=== PATIENT | male | born 1965 | race African-American/Black ===

== ENCOUNTER 2020-11-30 09:04 | Emergency (ER) | payer OTHER ==
[~2020-11-30] VITALS: Ht 175.3 cm; Wt 64.0 kg
[2020-11-30 09:49] LABS: BASOPHILS % 0.9 % (0.0-2.0); EOSINOPHILS % 5.4 % (0.0-5.0); HEMATOCRIT. 41.4 % (42.0-52.0); HEMOGLOBIN. 14.6 g/dL (14.0-18.0); LYMPHOCYTES % 36.2 % (20.0-50.0); MEAN CORPUSCULAR HEMOGLOBIN 31.5 pg (28.0-32.0); MEAN CORPUSCULAR VOLUME 89.5 fL (80.0-94.0); MEAN PLATELET VOLUME 7.3 fl (7.4-10.4); MONOCYTES % 9.5 % (2.0-8.0); PLATELET 224 x1000/uL (130-400); RED BLOOD CELL COUNT 4.63 mill/uL (4.7-6.1); RED CELL DISTRIBUTION WIDTH 14.2 % (11.6-14.6)
[2020-11-30 09:55] LABS: CHLORIDE 108 mEq/L (98-107)
[2020-11-30 09:59] LABS: ETHANOL BLOOD < 10 mg/dL; PROTHROMBIN TIME 11.1 sec (9.6-11.0)
[2020-11-30] MEDS ORDERED: ASPIRIN 325MG EC TABLET PO ONE (10:00)
[2020-11-30 10:01] LABS: LDL CHOLESTEROL 99 mg/dL (5-100)
[2020-11-30] MEDS ORDERED: IOHEXOL-350 100 ML BOTTLE ONE (11:47)
[2020-11-30 15:40] VITALS: BP 114/77
== END 2020-11-30 16:22 | disposition short-term general hospital (02) ==
LOC: ER 09:04 → CANBEDREQ 10:49 → ER 16:22
DX: I63.9 Cerebral infarction, unspecified (principal); I69.354 Hemiplegia and hemiparesis following cerebral infarction affecting left non-dominant side; D57.1 Sickle-cell disease without crisis; Z98.2 Presence of cerebrospinal fluid drainage device
CPT/HCPCS: 36415; 70450; 70496; 70498; 71045; 80053; 80320; 82962; 83721; 84484; 85025; 85610; 93005; 99285; Q9967; Z7610; G0480

== ENCOUNTER 2024-03-29 10:11 | Emergency (ER) | payer OTHER ==
[~2024-03-29] VITALS: Ht 165.1 cm; Wt 60.0 kg
[2024-03-29 10:12] VITALS: TEMP 98.1; O2SAT 100
[2024-03-29 11:38] LABS: BASOPHILS % 1.5 % (0.0-2.0); HEMATOCRIT. 44.7 % (42.0-52.0); LYMPHOCYTES % 39.6 % (20.0-50.0); MEAN CORPUSCULAR HEMOGLOBIN 30.4 pg (28.0-32.0); MEAN CORPUSCULAR HGB CONC 33.6 g/dL (31.0-37.0); MEAN CORPUSCULAR VOLUME 90.6 fL (80.0-94.0); MEAN PLATELET VOLUME 7.8 fl (7.4-10.4); MONOCYTES % 11.2 % (2.0-8.0); NEUTROPHILS % 42.7 % (40.0-76.0); PLATELET 243 x1000/uL (130-400); RED BLOOD CELL COUNT 4.94 mill/uL (4.7-6.1); RED CELL DISTRIBUTION WIDTH 14.2 % (11.6-14.6); WHITE BLOOD COUNT 3.9 x1000/uL (4.5-11.0)
[2024-03-29 11:55] LABS: CARBON DIOXIDE 26 mEq/L (21-32); CHLORIDE 111 mEq/L (98-107); POTASSIUM 4.5 mEq/L (3.5-5.1); SODIUM 141 mEq/L (136-145)
[2024-03-29 12:00] LABS: CREATININE 1.2 mg/dL (0.6-1.3)
[2024-03-29 12:01] LABS: GLUCOSE 112 mg/dL (70-105); UREA NITROGEN BLOOD 16 mg/dL (9-23)
[2024-03-29 12:02] LABS: ALANINE AMINOTRANSFERASE 19 IU/L (10-49); ALBUMIN 4.6 g/dL (3.2-4.8); ASPARTATE AMINOTRANSFERASE 20 IU/L (<34)
[2024-03-29] MEDS: SODIUM CHLORIDE 0.9% 1,000 ML IV ONE (12:03)
[2024-03-29 12:04] LABS: BILIRUBIN TOTAL 0.3 mg/dL (0.1-1.0); PROTEIN TOTAL 7.5 g/dL (6.0-8.3)
[2024-03-29 12:16] LABS: BILIRUBIN DIRECT < 0.1 mg/dL (<=3.0); ETHANOL BLOOD < 10 mg/dL (<10); TROPONIN I HIGH SENSITIVITY < 4 ng/L (3.0-53)
[2024-03-29 14:02] LABS: CLARITY URINE CLEAR (CLEAR); COLOR URINE YELLOW (YELLOW); GLUCOSE URINE NEGATIVE (NEGATIVE); KETONES URINE NEGATIVE (NEGATIVE); LEUKOCYTE ESTERASE URINE NEGATIVE (NEGATIVE); NITRITE URINE NEGATIVE (NEGATIVE); OCCULT BLOOD URINE NEGATIVE (NEGATIVE); PROTEIN URINE NEGATIVE (NEGATIVE); SPECIFIC GRAVITY URINE 1.012 (1.005-1.030); UROBILINOGEN URINE 0.2 E.U./dL (0.2-1.0)
[2024-03-29 14:19] LABS: *AMPHETAMINES SCREEN URINE NEGATIVE (NEGATIVE); *BARBITURATES SCREEN URINE NEGATIVE (NEGATIVE); *BENZODIAZEPINES SCREEN URINE NEGATIVE (NEGATIVE)
[2024-03-29 14:20] LABS: *COCAINE SCREEN URINE NEGATIVE (NEGATIVE); CANNABINOID URINE SCREEN NEGATIVE (NEGATIVE); ECSTASY MDMA SCREEN URINE NEGATIVE (NEGATIVE); METHADONE URINE SCREEN NEGATIVE (NEGATIVE); OPIATES URINE SCREEN NEGATIVE (NEGATIVE); PHENCYCLIDINE URINE SCREEN NEGATIVE (NEGATIVE)
[2024-03-29 16:22] VITALS: BP 124/74; PULSE 54; RESP 16; O2SAT 99
== END 2024-03-29 17:32 | disposition short-term general hospital (02) ==
LOC: ER 10:11 → EDBEDREQ 13:16 → CANBEDREQ 13:17 → ER 17:32
DX: R52 Pain, unspecified (principal); D72.819 Decreased white blood cell count, unspecified; I10 Essential (primary) hypertension; Z86.73 Personal history of transient ischemic attack (TIA), and cerebral infarction without residual deficits; Z98.2 Presence of cerebrospinal fluid drainage device
CPT/HCPCS: 80076; 80305; 80048; 81003; 80320; 83690; 85025; 84484; 36415; 71045; 70450; 93005; 99285; J7030; Z7610 ×2; G0480

== ENCOUNTER 2024-06-17 15:34 | Emergency (ER) | payer OTHER ==
[~2024-06-17] VITALS: Ht 177.8 cm; Wt 72.0 kg
[2024-06-17] MEDS ORDERED: MORPHINE SULFATE 4 MG/ML INJ (FOR IV/IM USE) IV STA (15:39)
[2024-06-17 15:49] VITALS: O2SAT 98
[2024-06-17 16:31] LABS: BASOPHILS % 1.1 % (0.0-2.0); EOSINOPHILS % 3.1 % (0.0-5.0); HEMATOCRIT. 45.3 % (42.0-52.0); HEMOGLOBIN. 15.1 g/dL (14.0-18.0); LYMPHOCYTES % 25.5 % (20.0-50.0); MEAN CORPUSCULAR HEMOGLOBIN 30.4 pg (28.0-32.0); MEAN CORPUSCULAR HGB CONC 33.5 g/dL (31.0-37.0); MEAN CORPUSCULAR VOLUME 90.7 fL (80.0-94.0); MONOCYTES % 6.2 % (2.0-8.0); NEUTROPHILS % 64.1 % (40.0-76.0); PLATELET 240 x1000/uL (130-400); RED BLOOD CELL COUNT 4.99 mill/uL (4.7-6.1); RED CELL DISTRIBUTION WIDTH 14.8 % (11.6-14.6); WHITE BLOOD COUNT 5.6 x1000/uL (4.5-11.0)
[2024-06-17 16:35] LABS: CHLORIDE 110 mEq/L (98-107); POTASSIUM 4.3 mEq/L (3.5-5.1); SODIUM 142 mEq/L (136-145)
[2024-06-17 16:36] LABS: CARBON DIOXIDE 27 mEq/L (21-32)
[2024-06-17 16:37] LABS: CALCIUM 10.3 mg/dL (8.7-10.4)
[2024-06-17 16:41] LABS: CREATININE 1.1 mg/dL (0.6-1.3); PROTHROMBIN TIME 10.8 sec (9.6-11.0)
[2024-06-17 16:42] LABS: GLUCOSE 158 mg/dL (70-105); UREA NITROGEN BLOOD 34 mg/dL (9-23)
[2024-06-17 16:43] LABS: ALANINE AMINOTRANSFERASE 14 IU/L (10-49); ALBUMIN 4.9 g/dL (3.2-4.8); ASPARTATE AMINOTRANSFERASE 14 IU/L (<34)
[2024-06-17 16:44] LABS: BILIRUBIN TOTAL 0.3 mg/dL (0.1-1.0); PROTEIN TOTAL 7.5 g/dL (6.0-8.3)
[2024-06-17 16:52] LABS: BILIRUBIN DIRECT < 0.1 mg/dL (<=3.0)
[2024-06-17] MEDS: SODIUM CHLORIDE 0.9% 1,000 ML IV ONE (18:26)
[2024-06-17] MEDS: MORPHINE SULFATE 4 MG/ML INJ (FOR IV/IM USE) IV STA (18:26)
[2024-06-17] MEDS: NA PHOS,M-B/NA PHOS,DI-BA ENEMA 118ML PR ONE (19:45)
[2024-06-17 23:16] VITALS: BP 133/81; PULSE 81; RESP 16; TEMP 36.78072; O2SAT 97
[2024-06-17] MEDS ORDERED: IOHEXOL-300 100 ML BOTTLE ONE (23:21)
== END 2024-06-17 23:17 | disposition short-term general hospital (02) ==
LOC: ER 15:34
DX: K59.00 Constipation, unspecified (principal); I10 Essential (primary) hypertension; D57.1 Sickle-cell disease without crisis; Z86.73 Personal history of transient ischemic attack (TIA), and cerebral infarction without residual deficits; Z98.890 Other specified postprocedural states; Z98.2 Presence of cerebrospinal fluid drainage device
CPT/HCPCS: 99285; 74177; 96374; 71045; 96361; 80076; 80048; 83605; 83690; 85025; 85610; 36415; 93005; Q9967; J2270; J7030

== ENCOUNTER 2024-07-25 08:02 | Emergency (ER) | payer OTHER ==
[~2024-07-25] VITALS: Ht 172.7 cm; Wt 65.0 kg
[2024-07-25 08:04] VITALS: O2SAT 100
[2024-07-25 09:55] LABS: CHLORIDE 113 mEq/L (98-107); POTASSIUM 4.2 mEq/L (3.5-5.1); SODIUM 143 mEq/L (136-145)
[2024-07-25 09:56] LABS: CALCIUM 10.2 mg/dL (8.7-10.4); CARBON DIOXIDE 20 mEq/L (21-32)
[2024-07-25 10:01] LABS: CREATININE 1.2 mg/dL (0.6-1.3); GLUCOSE 148 mg/dL (70-105); UREA NITROGEN BLOOD 25 mg/dL (9-23)
[2024-07-25 10:03] LABS: ALANINE AMINOTRANSFERASE 17 IU/L (10-49); ALBUMIN 5.1 g/dL (3.2-4.8); ASPARTATE AMINOTRANSFERASE 19 IU/L (<34); BILIRUBIN TOTAL 0.3 mg/dL (0.1-1.0); PROTEIN TOTAL 8.4 g/dL (6.0-8.3)
[2024-07-25 10:04] LABS: BASOPHILS % 0.9 % (0.0-2.0); EOSINOPHILS % 6.2 % (0.0-5.0); HEMATOCRIT. 48.1 % (42.0-52.0); HEMOGLOBIN. 15.8 g/dL (14.0-18.0); MEAN CORPUSCULAR HEMOGLOBIN 30.2 pg (28.0-32.0); MEAN CORPUSCULAR HGB CONC 32.8 g/dL (31.0-37.0); MEAN CORPUSCULAR VOLUME 91.9 fL (80.0-94.0); MEAN PLATELET VOLUME 8.4 fl (7.4-10.4); MONOCYTES % 8.9 % (2.0-8.0); PLATELET 221 x1000/uL (130-400); RED BLOOD CELL COUNT 5.23 mill/uL (4.7-6.1); RED CELL DISTRIBUTION WIDTH 14.6 % (11.6-14.6); WHITE BLOOD COUNT 6.3 x1000/uL (4.5-11.0)
[2024-07-25 12:22] LABS: CLARITY URINE CLEAR (CLEAR); COLOR URINE YELLOW (YELLOW); GLUCOSE URINE NEGATIVE (NEGATIVE); KETONES URINE NEGATIVE (NEGATIVE); LEUKOCYTE ESTERASE URINE NEGATIVE (NEGATIVE); NITRITE URINE NEGATIVE (NEGATIVE); OCCULT BLOOD URINE NEGATIVE (NEGATIVE); PH URINE 5.5 (4.5-8.0); PROTEIN URINE NEGATIVE (NEGATIVE); SPECIFIC GRAVITY URINE 1.013 (1.005-1.030); UROBILINOGEN URINE 0.2 E.U./dL (0.2-1.0)
[2024-07-25] MEDS: MECLIZINE 25MG TABLET PO ONE (13:46)
[2024-07-25 16:04] VITALS: BP 124/90; PULSE 64; RESP 18; TEMP 36.7; O2SAT 100
== END 2024-07-25 16:29 | disposition short-term general hospital (02) ==
LOC: ER 08:08 → CANBEDREQ 14:25 → ER 16:29
DX: R42 Dizziness and giddiness (principal); I10 Essential (primary) hypertension; G45.9 Transient cerebral ischemic attack, unspecified; Z98.2 Presence of cerebrospinal fluid drainage device; Z86.73 Personal history of transient ischemic attack (TIA), and cerebral infarction without residual deficits; Z98.890 Other specified postprocedural states
CPT/HCPCS: 99285; 70450; 71045; 80053; 81003; 83690; 85025; 36415; 70360; 74018; J8597

== ENCOUNTER 2024-12-27 11:29 | Emergency (ER) | payer OTHER ==
[~2024-12-27] VITALS: Ht 165.1 cm; Wt 65.0 kg
[~2024-12-27 11:29] MED LIST: ATOR20TA65; LEVE500T19; MIRT7.5T11
[2024-12-27 11:31] VITALS: O2SAT 99
[2024-12-27 15:34] VITALS: BP 138/91; PULSE 66; RESP 18; TEMP 36.7; O2SAT 100
== END 2024-12-27 15:53 | disposition home or self-care (01) ==
LOC: ER 11:29
DX: S09.8XXA Other specified injuries of head, initial encounter (principal); L97.929 Non-pressure chronic ulcer of unspecified part of left lower leg with unspecified severity; E11.9 Type 2 diabetes mellitus without complications; E78.00 Pure hypercholesterolemia, unspecified; F17.200 Nicotine dependence, unspecified, uncomplicated; I10 Essential (primary) hypertension; Z79.899 Other long term (current) drug therapy; Z86.73 Personal history of transient ischemic attack (TIA), and cerebral infarction without residual deficits; X58.XXXA Exposure to other specified factors, initial encounter; Y93.89 Activity, other specified; Y92.89 Other specified places as the place of occurrence of the external cause; Y99.8 Other external cause status
CPT/HCPCS: 73610; 99284